=== PATIENT | male | born 1955 | race African-American/Black ===

== ENCOUNTER 2019-06-23 15:43 | Emergency (ER) | payer MEDICAID, OTHER ==
[~2019-06-23] VITALS: Ht 182.9 cm; Wt 82.0 kg
[2019-06-23] MEDS ORDERED: ACETAMINOPHEN 325MG TABLET PO ONE (18:30)
[2019-06-23 18:42] LABS: BASOPHILS % 0.4 % (0.0-2.0); EOSINOPHILS % 1.9 % (0.0-5.0); HEMATOCRIT. 46.5 % (42.0-52.0); HEMOGLOBIN. 15.8 g/dL (14.0-18.0); LYMPHOCYTES % 22.8 % (20.0-50.0); MEAN CORPUSCULAR HEMOGLOBIN 31.7 pg (28.0-32.0); MEAN CORPUSCULAR VOLUME 93.4 fL (80.0-94.0); MEAN PLATELET VOLUME 8.1 fl (7.4-10.4); MONOCYTES % 8.4 % (2.0-8.0); NEUTROPHILS % 66.5 % (40.0-76.0); PLATELET 298 x1000/uL (130-400); RED BLOOD CELL COUNT 4.98 mill/uL (4.7-6.1); RED CELL DISTRIBUTION WIDTH 13.7 % (11.6-14.6)
[2019-06-23 18:48] LABS: CHLORIDE 107 mEq/L (98-107)
[2019-06-23 18:51] LABS: PROTHROMBIN TIME 10.7 sec (9.6-11.0)
[2019-06-23 21:13] LABS: CLARITY URINE CLEAR (CLEAR); COLOR URINE YELLOW (YELLOW); KETONES URINE NEGATIVE (NEGATIVE); LEUKOCYTE ESTERASE URINE TRACE (NEGATIVE); NITRITE URINE NEGATIVE (NEGATIVE); OCCULT BLOOD URINE NEGATIVE (NEGATIVE); PH URINE 5.5 (4.5-8.0); PROTEIN URINE 1+ (NEGATIVE); SPECIFIC GRAVITY URINE 1.028 (1.005-1.030)
[2019-06-24 07:30] VITALS: BP 143/94
== END 2019-06-24 09:50 | disposition home or self-care (01) ==
LOC: ER 15:43
DX: B34.9 Viral infection, unspecified (principal); M54.5 Low back pain; F17.200 Nicotine dependence, unspecified, uncomplicated; M79.10 Myalgia, unspecified site; Z59.0 Homelessness
CPT/HCPCS: 36415; 71045; 80053; 81003; 83605; 84145; 84484; 85025; 87804; 93005; 99285

== ENCOUNTER 2020-04-09 18:21 | Emergency (ER) | payer MEDICAID ==
[~2020-04-09] VITALS: Ht 177.8 cm; Wt 63.5 kg
[2020-04-09 18:30] VITALS: BP 126/82
== END 2020-04-10 00:22 | disposition home or self-care (01) ==
LOC: ER 18:21
DX: R53.1 Weakness (principal); R05 Cough; R42 Dizziness and giddiness
CPT/HCPCS: 71045; 99283